=== PATIENT | male | born 1940 | race Caucasian/White ===

== ENCOUNTER → 2020-04-25 | Outpatient (CLI) | payer MEDICARE, OTHER ==
[~2020-04-25] MED LIST: ASPI81CH PO; ATOR20 PO; LISI20 PO; METF500 PO; NABU750 PO; OXAYDO5 M1 PO; PROM25 PO; SULTRIDS PO; TRAZ100 PO
== END | disposition home or self-care (01) ==
LOC: LAB SHORT 13:39 → PLD 13:39
DX: L92.8 Other granulomatous disorders of the skin and subcutaneous tissue (principal); L30.8 Other specified dermatitis
CPT/HCPCS: 88305; 88313

== ENCOUNTER 2020-08-23 06:02 | Day surgery (SDC) | payer MEDICARE, OTHER ==
[~2020-08-23] VITALS: Ht 177.8 cm; Wt 104.6 kg
[~2020-08-23 06:02] MED LIST changes: -ASPI81CH PO; -OXAYDO5 M1 PO; -PROM25 PO; -SULTRIDS PO
--- NOTE | 2020-08-23 06:40 | NUR ---
INTO SDSADMISISON STARTED. Ambulatory in Day Surgery History, Chart, Medications and Allergies reviewed before start of procedure. Lungs clear T/O to Auscultation. Patient confirms NPO status and agrees with scheduled surgery.
--- NOTE | 2020-08-23 18:01 | NUR ---
SHIFT SUMMARY PT A&O, VSS. AMBULATING W/FWW & GB, MINIMAL ASSISTANCE. EATING, DRINKING, & VOIDING WELL. DENIES PAIN. WAS HOPEFUL TO GO HOME TODAY BUT WAS VERY IMPULSIVE W/ PT/OT.
[2020-08-24 06:03] LABS: BASOPHILS ABSOLUTE AUTO 0.02 K/mm3 (0.00-0.23); BASOPHILS PERCENT AUTO 0 % (0-2); EOSINOPHILS ABSOLUTE AUTO 0.02 K/mm3 (0.00-0.68); EOSINOPHILS PERCENT AUTO 0 % (0-6); Hematocrit 35.3 % (37.0-53.0); Hemoglobin 11.6 g/dL (13.5-17.5); IMMATURE GRAN ABSOLUTE AUTO 0.04 K/mm3 (0.00-0.10); IMMATURE GRAN PERCENT AUTO 1 % (0-1); LYMPHOCYTES ABSOLUTE AUTO 1.19 K/mm3 (0.84-5.20); LYMPHOCYTES PERCENT AUTO 14 % (21-46); MONOCYTES ABSOLUTE AUTO 1.08 K/mm3 (0.16-1.47); MONOCYTES PERCENT AUTO 12 % (4-13); Mean Corpuscular HGB 28.8 pg (26.0-34.0); Mean Corpuscular HGB Conc 32.9 g/dL (31.5-36.5); Mean Corpuscular Volume 88 fL (80-100); Mean Platelet Volume 10.8 fL (9.1-12.4); NEUTROPHILS ABSOLUTE AUTO 6.39 K/mm3 (1.96-9.15); NEUTROPHILS PERCENT AUTO 73 % (41-73); Platelet Count 191 K/mm3 (150-400); RDW Coefficient Variation 12.5 % (11.7-14.2); RDW Standard Deviation 40.1 fL (35.1-46.3); Red Blood Cell Count 4.03 M/mm3 (4.30-5.90); White Blood Cell Count 8.74 K/mm3 (4.00-11.30)
--- NOTE | 2020-08-24 06:17 | NUR ---
SHIFT SUMMARY SITTING UP IN CHAIR, HAS RESTED OFF AND ON. STATES THAT HE HAS RESTED THE LEAST AMOUNT EVER WITH THIS HOSPITALIZATION. GOOD DISTAL PULSES, CAP REFILL <3 SEC, AND WARM TO TOUCH. PAIN MANAGED PER EMAR. POLAR YARIEL IN PLACE TO LEFT HIP. FOAM TAPE OVER GAUZE REMAINS C/D/I. [employer]'S SCD'S IN PLACE. SL PIV, ORDERED DOSES OF ABX COMPLETED. NO SIGNIFICANT CHANGES NOTED THIS SHIFT. DENIES FURTHER NEEDS AT THIS TIME. SAFETY MEASURES IN PLACE. WILL CONTINUE TO MONITOR FOR CHANGES/NEEDS AND ADDRESS THEM THEY ARISE. WILL GIVE HAND OFF TO ONCOMING SHIFT USING SBAR DURING BEDSIDE REPORT.
[2020-08-24 06:45] LABS: Anion Gap 5 mmol/L (6-16); Blood Urea Nitrogen 19 mg/dL (8-24); Bun/Creatinine Ratio 21.3 (12.0-20.0); CO2, Blood 26 mmol/L (21-32); Calcium, Blood 9.6 mg/dL (8.5-10.1); Chloride, Blood 107 mmol/L (98-108); Creatinine, Blood 0.89 mg/dL (0.60-1.20); Glomerular Filtration Rate >60 (60-); Glucose, Blood 142 mg/dL (70-99); Sodium, Blood 138 mmol/L (136-145)
[2020-08-24] MEDS ORDERED: ASPI81CH PO (11:55)
[2020-08-24] MEDS ORDERED: OXAYDO5 M1 PO (11:56)
[2020-08-24] MEDS ORDERED: SULTRIDS PO (11:57)
[2020-08-24] MEDS ORDERED: PROM25 PO (11:57)
--- NOTE | 2020-08-24 13:33 | NUR ---
08/24/20 1333 Saima Mcdonough VERIFICATIONS: EDIT CHART.
--- NOTE | 2020-08-24 13:48 | NUR ---
DISCHARGE PT PROVIDED WITH WRITTEN AND VERBAL DISCHARGE INSTRUCTIONS, HE REPORTED UNDERSTANDING. PT WAS PROVIDED WITH INFORMATION REGARDING A TOILET RISER OR BEDSIDE COMMODE. APPOINTMENTS WITH DR. ANGELES AND [facility] CONFIRMED AND PT NOTIFIED. SHAUN CALLED TO [facility]. DRESSINGS PROVIDED. VSS, BP IMPROVED AFTER PAIN MEDICATION WAS GIVEN. PT ASSISTED OUT IN W/C BY ISREAL STUDENT NURSE.
== END 2020-08-24 13:52 | disposition home or self-care (01) ==
LOC: ORSCMMR 06:02 → ORD 07:30 → ORSCMMR 10:51 → SURS 10:51 → ORSCMMR 08-24 13:52
PROVIDERS: Orthopaedic Surgery
PROC: 8E0YXBZ Computer Assisted Procedure of Lower Extremity (ICD-10-PCS; principal; 2020-08-23 07:30)
PROC: 0SRB0JA Replacement of Left Hip Joint with Synthetic Substitute, Uncemented, Open Approach (ICD-10-PCS; principal; 2020-08-23 07:30)
DX: M16.12 Unilateral primary osteoarthritis, left hip (principal); E11.9 Type 2 diabetes mellitus without complications; I10 Essential (primary) hypertension; E66.9 Obesity, unspecified; Z68.33 Body mass index [BMI] 33.0-33.9, adult; Z79.84 Long term (current) use of oral hypoglycemic drugs; G47.33 Obstructive sleep apnea (adult) (pediatric); Z87.891 Personal history of nicotine dependence
CPT/HCPCS: 36415; 72170; 80048; 82947; 83735; 85025; 97110; 97116; 97162; 97166; 97530; 97535; A9270; C1713; C1776; J0171; J0690; J0735; J1100; J1815; J1885; J2250; J2370; J2405; J2704; J2795; J3010; J3370; J7030; J7120

== ENCOUNTER → 2024-04-06 | Outpatient (CLI) | payer MEDICARE, OTHER ==
[~2024-04-06] MED LIST changes: +ASPI81CH PO; +OXAYDO5 M1 PO; +PROM25 PO; +SULTRIDS PO
[2024-04-06 14:28] LABS: Microalb/Creat Ratio UR, Rand 139.583 mg/g (0.000-30.000)
== END | disposition home or self-care (01) ==
LOC: LAB SHORT 11:15 → LAB 11:15
PROVIDERS: Family Medicine
DX: E11.40 Type 2 diabetes mellitus with diabetic neuropathy, unspecified (principal); E11.51 Type 2 diabetes mellitus with diabetic peripheral angiopathy without gangrene
CPT/HCPCS: 82043; 82570

== ENCOUNTER 2024-12-09 22:07 | Emergency (ER) | payer MEDICARE, OTHER ==
[~2024-12-09] VITALS: Ht 180.3 cm; Wt 87.1 kg
[~2024-12-09 22:07] MED LIST changes: +CARVEDILOL3.125 MG PO; +OXAYDO5 M2 PO; +PLAVIX75 MG PO; +PROZAC40 MG PO; +TIMO.5OPSO BOTHEYES
[2024-12-09 22:16] VITALS: BP 133/89
[2024-12-09] MEDS ORDERED: ATOR80 PO (22:22)
[2024-12-09 22:36] LABS: BASOPHILS ABSOLUTE AUTO 0.03 K/mm3 (0.00-0.23); BASOPHILS PERCENT AUTO 0 % (0-2); EOSINOPHILS ABSOLUTE AUTO 0.18 K/mm3 (0.00-0.68); EOSINOPHILS PERCENT AUTO 3 % (0-6); Hematocrit 41.6 % (37.0-53.0); Hemoglobin 12.9 g/dL (13.5-17.5); IMMATURE GRAN ABSOLUTE AUTO 0.01 K/mm3 (0.00-0.10); IMMATURE GRAN PERCENT AUTO 0 % (0-1); LYMPHOCYTES ABSOLUTE AUTO 1.70 K/mm3 (0.84-5.20); LYMPHOCYTES PERCENT AUTO 24 % (21-46); MONOCYTES ABSOLUTE AUTO 0.66 K/mm3 (0.16-1.47); MONOCYTES PERCENT AUTO 9 % (4-13); Mean Corpuscular HGB Conc 31.0 g/dL (31.5-36.5); Mean Corpuscular Volume 87 fL (80-100); NEUTROPHILS ABSOLUTE AUTO 4.54 K/mm3 (1.96-9.15); NEUTROPHILS PERCENT AUTO 64 % (41-73); NRBC ABSOLUTE 0.00 K/mm3 (0.00-0.02); NRBC Auto 0.0 /100 WBC (0.0-0.2); Platelet Count 204 K/mm3 (150-400); RDW Coefficient Variation 14.7 % (11.7-14.2); RDW Standard Deviation 46.5 fL (35.1-46.3)
[2024-12-09 22:55] LABS: Alanine Aminotransfer (ALT/SGP 17.0 U/L (12-78); Albumin, Blood 3.1 g/dL (3.4-5.0); Albumin/Globulin Ratio 0.7 (0.8-1.8); Anion Gap 10.0 mmol/L (3-11); Aspartate Aminotrans (AST/SGOT 22.0 U/L (12-37); Bilirubin, Total 0.2 mg/dL (0.1-1.0); Blood Urea Nitrogen 15.0 mg/dL (8-24); CO2, Blood 24.0 mmol/L (21-32); Calcium, Blood 9.4 mg/dL (8.5-10.1); Chloride, Blood 106.0 mmol/L (98-108); Creatinine, Blood 0.83 mg/dL (0.60-1.20); Globulin, Blood 4.4 g/dL (2.2-4.0); Glucose, Blood 99.0 mg/dL (70-99); Potassium, Blood 3.9 mmol/L (3.5-5.5); Sodium, Blood 136.0 mmol/L (136-145); Total Protein, Blood 7.5 g/dL (6.4-8.2)
== END 2024-12-10 00:53 | disposition home or self-care (01) ==
LOC: ER 22:07
PROVIDERS: Student in an Organized Health Care Education/Training Program
DX: S00.12XA Contusion of left eyelid and periocular area, initial encounter (principal); M19.90 Unspecified osteoarthritis, unspecified site; I10 Essential (primary) hypertension; E78.5 Hyperlipidemia, unspecified; E11.9 Type 2 diabetes mellitus without complications; Z79.82 Long term (current) use of aspirin; Z79.899 Other long term (current) drug therapy; Z79.84 Long term (current) use of oral hypoglycemic drugs; W18.30XA Fall on same level, unspecified, initial encounter; Y92.009 Unspecified place in unspecified non-institutional (private) residence as the place of occurrence of the external cause
CPT/HCPCS: 70450; 80053; 85025; 93005; 93010; 99284-25